=== PATIENT | male | born 1975 | race Caucasian/White ===

== ENCOUNTER → 2020-12-18 | Outpatient (CLI) | payer OTHER ==
[~2020-12-18] MED LIST: ASPIRIN325 MG PO; DEPAKOTE500 MG PO; DIVALPROEX SOD250 MG PO; FUROSEMIDE80 MG PO; GLUCOPHAGE 500500 MG PO; IMDUR ER TAB 3030 MG PO; JARDIANCE10 MG PO; LIPITOR TAB 2020 MG PO; LISINOPRIL40 MG PO; METOPROLOL SUCC50 MG PO; MONTELUKAST SOD10 MG PO; NORVASC 5 MG TAB5 MG PO; OMEPRAZOLE20 MG PO; SIMVASTATIN20 MG PO
== END ==
LOC: US 13:30
DX: I73.9 Peripheral vascular disease, unspecified (principal)
CPT/HCPCS: 93925; 93970